=== PATIENT | female | born 1990 | race Caucasian/White ===

== ENCOUNTER 2018-05-25 07:45 | Emergency (ER) | payer MEDICAID ==
[~2018-05-25] VITALS: Ht 162.6 cm; Wt 109.0 kg
[~2018-05-25 07:45] MED LIST: HYDR-569 PO
[2018-05-25] MEDS ORDERED: DOXY-200 PO (08:30)
[2018-05-25 08:38] VITALS: BP 146/99
== END 2018-05-25 08:39 | disposition home or self-care (01) ==
LOC: ER 07:46
DX: R59.1 Generalized enlarged lymph nodes (principal); H92.01 Otalgia, right ear; Z88.2 Allergy status to sulfonamides; Z79.899 Other long term (current) drug therapy
CPT/HCPCS: 99283

== ENCOUNTER 2023-11-01 10:27 | Emergency (ER) | payer MEDICAID ==
[~2023-11-01] VITALS: Ht 165.1 cm; Wt 98.1 kg
[~2023-11-01 10:27] MED LIST changes: +HYDR-4383 PO; -HYDR-569 PO
[2023-11-01] MEDS ORDERED: normal saline 1000ML IV soln IVB ONE (11:10)
[2023-11-01 11:58] LABS: BASOPHILS % (AUTO) 0.3 % (0-1); EOSINOPHILS % (AUTO) 0 % (0-6); HEMATOCRIT 42.6 % (35.0-45.0); HEMOGLOBIN 14.4 g/dl (12.0-16.0); LYMPHOCYTES # (AUTO) 0.4 X10'3 (1.1-4.8); LYMPHOCYTES % (AUTO) 8.4 % (21-51); MEAN CORPUSCULAR HGB CONC 33.7 g/dL (33.0-36.5); MEAN CORPUSCULAR VOLUME 91.8 FL (78-98); MEAN PLATELET VOLUME 9.7 FL (7.4-10.4); MONOCYTES # (AUTO) 0.6 X10'3 (0-0.9); MONOCYTES % (AUTO) 14.3 % (2-12); NEUTROPHILS # (AUTO) 3.4 X10'3 (1.8-7.7); PLATELET COUNT 168 X10'3 (140-440); RED BLOOD COUNT 4.64 X10'6 (4.20-5.60); RED CELL DISTRIBUTION WIDTH 12.7 % (11.5-14.5); WHITE BLOOD COUNT 4.5 X10'3 (4.5-11.0)
[2023-11-01 11:59] LABS: ALANINE AMINOTRANSFERASE 120 U/L (12-78); ALKALINE PHOSPHATASE 120 IU/L (46-116); ANION GAP 13 (8-16); ASPARTATE AMINO TRANSFERASE 64 U/L (10-37); BILIRUBIN,TOTAL 0.3 MG/DL (0.1-1.0); BLOOD UREA NITROGEN 9 MG/DL (7-18); BUN/CREATININE RATIO 10.7 (10.0-20.0); CALCIUM 8.3 MG/DL (8.5-10.1); CHLORIDE 100 MMOL/L (99-107); CREATININE 0.84 MG/DL (0.40-0.90); GLUCOSE 107 MG/DL (70-104); POTASSIUM 3.5 MMOL/L (3.5-5.1); SODIUM 138 MMOL/L (135-145); TOTAL CARBON DIOXIDE 25.3 MMOL/L (24-32); TOTAL PROTEIN 7.9 G/DL (6.4-8.2); eCRCL 86 ML/MIN; eGFR 78 ML/MIN
[2023-11-01] MEDS ORDERED: HYDROcodone/acetaminophen 5mg/325mg tablet PO STA (12:39)
[2023-11-01] MEDS ORDERED: CefTRIAXone/D5W-Rocephin 1gm 50 ML IV STA (12:39)
[2023-11-01] MEDS ORDERED: ondansetron 4mg/5ml UD cup PO STA (12:39)
[2023-11-01] MEDS ORDERED: normal saline 1000ml 1,000 ML IV ONE (12:40)
[2023-11-01] MEDS ORDERED: ondansetron 4mg rapidly disintigrating tab PO ONE (15:30)
[2023-11-01] MEDS ORDERED: HYDROcodone/acetaminophen 10/325mg tab PO ONE (15:30)
[2023-11-01 15:49] LABS: URINE HCG NEGATIVE (NEG)
[2023-11-01 15:53] LABS: BILIRUBIN,URINE NEGATIVE (Neg); CLARITY,URINE TURBID (Clear); COLOR,URINE YELLOW (Yellow); GLUCOSE, URINE NEGATIVE (Neg); KETONES,URINE >=80 mg/dl (Neg); LEUKOCYTE ESTERASE ,URINE TRACE (Neg); NITRITES, URINE NEGATIVE (Neg); OCCULT BLOOD,URINE SMALL (Neg); PH,URINE 5.5 (4.8-8.0); PROTEIN,URINE TRACE mg/dl (Neg); UROBILINOGEN,URINE 0.2 E.U/dL (0.2-1.0)
[2023-11-01] MEDS ORDERED: iohexol 300mg/ml 100ml inj. ONE (15:54)
[2023-11-01 16:04] LABS: MUCUS STRANDS MANY /LPF (Neg); SQUAMOUS EPITHELIAL CELL,UR MANY /LPF (FEW); UA COLLECTION TYPE CLN CATCH MIDSTREAM
[2023-11-01 16:06] LABS: BACTERIA,URINE 3+ /HPF (Neg)
[2023-11-01 16:07] LABS: TRANSITIONAL EPI CELLS,URINE FEW /HPF
[2023-11-01] MEDS ORDERED: ONDA4TAB12 PO (17:28)
[2023-11-01] MEDS ORDERED: ondansetron/PF 4mg/2ml inj IV ONE (17:30)
[2023-11-01 17:48] VITALS: BP 98/62; PULSE 82; RESP 17; TEMP 93.3; O2SAT 94
== END 2023-11-01 18:01 | disposition home or self-care (01) ==
LOC: ER 10:28
DX: B34.9 Viral infection, unspecified (principal); R10.9 Unspecified abdominal pain; R11.10 Vomiting, unspecified; Z79.899 Other long term (current) drug therapy; Z88.2 Allergy status to sulfonamides
CPT/HCPCS: 36415; 74176; 76770; 80053; 81001; 81025; 83605; 84145; 85025; 87040; 87088; 96361; 96365; 96366; 99285; J0696; J7030; Q9967